=== PATIENT | male | born 1935 | race Native Hawaiian/Other Pacific Islander ===

== ENCOUNTER 2016-07-07 10:15 | Inpatient (IN) | payer OTHER ==
[~2016-07-07 10:15] MED LIST: AMLO10TA PO; BAYER ASPIRIN E81 MG PO; FLUTMIS6 INH; HYDR25TA60 PO; MELOXICAM15 MG PO; PROAIR HFA IN; SIMV20TA2 PO; UNITH DIRECT88 MCG PO
== END 2016-08-07 08:00 | disposition still patient (30) ==
LOC: PAVC 10:15
PROVIDERS: ADMIT Internal Medicine
DX: Z51.89 Encounter for other specified aftercare (principal)

== ENCOUNTER 2016-08-07 09:00 | Inpatient (IN) | payer OTHER | END 2016-09-07 12:35 | disposition still patient (30) | LOC: PAVC 09:00 | PROVIDERS: ADMIT Internal Medicine | DX: Z51.89 Encounter for other specified aftercare (principal) ==

== ENCOUNTER 2016-09-02 09:22 | Outpatient (CLI) | payer OTHER | END 2016-09-02 19:09 | disposition home or self-care (01) | LOC: LAB 09:22 | DX: R25.2 Cramp and spasm (principal); M10.072 Idiopathic gout, left ankle and foot | CPT/HCPCS: 83735 ==

== ENCOUNTER 2016-09-07 12:54 | Inpatient (IN) | payer OTHER | END 2016-10-05 13:21 | disposition still patient (30) | LOC: PAVC 12:54 | PROVIDERS: ADMIT Internal Medicine | DX: Z51.89 Encounter for other specified aftercare (principal) ==

== ENCOUNTER 2016-10-05 13:37 | Inpatient (IN) | payer OTHER | END 2016-11-05 08:04 | disposition still patient (30) | LOC: PAVC 13:37 | PROVIDERS: ADMIT Internal Medicine | DX: Z51.89 Encounter for other specified aftercare (principal) ==

== ENCOUNTER 2016-10-27 12:35 | Outpatient (CLI) | payer OTHER | END 2016-10-27 21:05 | disposition home or self-care (01) | LOC: RAD 12:35 | DX: M25.512 Pain in left shoulder (principal); M25.612 Stiffness of left shoulder, not elsewhere classified ==

== ENCOUNTER 2016-11-05 08:38 | Inpatient (IN) | payer OTHER | END 2016-12-05 10:57 | disposition still patient (30) | LOC: PAVC 08:38 | PROVIDERS: ADMIT Internal Medicine | DX: Z51.89 Encounter for other specified aftercare (principal) ==

== ENCOUNTER 2016-12-03 15:40 | Outpatient (CLI) | payer OTHER | END 2016-12-03 19:58 | disposition home or self-care (01) | LOC: LAB 15:40 | DX: Z16.24 Resistance to multiple antibiotics (principal) | CPT/HCPCS: 87081 ==

== ENCOUNTER 2016-12-05 11:24 | Inpatient (IN) | payer OTHER | END 2017-01-05 10:46 | disposition still patient (30) | LOC: PAVC 11:24 | PROVIDERS: ADMIT Internal Medicine | DX: Z51.89 Encounter for other specified aftercare (principal) ==

== ENCOUNTER 2017-01-05 11:00 | Inpatient (IN) | payer OTHER | END 2017-02-04 16:09 | disposition still patient (30) | LOC: PAVC 11:00 | PROVIDERS: ADMIT Internal Medicine | DX: Z51.89 Encounter for other specified aftercare (principal) ==

== ENCOUNTER 2017-01-09 05:56 | Day surgery (SDC) | payer OTHER | END 2017-01-09 08:17 | disposition home or self-care (01) | LOC: OR 05:56 | PROC: 08RK3JZ Replacement of Left Lens with Synthetic Substitute, Percutaneous Approach (ICD-10-PCS; principal; 2017-01-09) | DX: H25.812 Combined forms of age-related cataract, left eye (principal) | CPT/HCPCS: 66984; V2632 ==

== ENCOUNTER 2017-01-10 06:50 | Outpatient (CLI) | payer OTHER ==
[2017-01-10 08:45] LABS: PLATELET COUNT 219 K/uL (142-355)
[2017-01-10 09:05] LABS: POTASSIUM 3.9 mmol/L (3.6-5.2); SODIUM 137 mmol/L (136-145)
== END 2017-01-10 19:08 | disposition home or self-care (01) ==
LOC: LAB 06:50
PROVIDERS: Internal Medicine
DX: D64.89 Other specified anemias (principal); I10 Essential (primary) hypertension; E03.8 Other specified hypothyroidism
CPT/HCPCS: 80053; 84443; 85027

== ENCOUNTER 2017-02-04 16:32 | Inpatient (IN) | payer OTHER | END 2017-03-07 12:59 | disposition still patient (30) | LOC: PAVC 16:32 | PROVIDERS: ADMIT Internal Medicine | DX: Z51.89 Encounter for other specified aftercare (principal) ==

== ENCOUNTER 2017-02-27 09:20 | Day surgery (SDC) | payer OTHER | END 2017-02-27 11:42 | disposition home or self-care (01) | LOC: OR 09:20 | PROC: 08RJ3JZ Replacement of Right Lens with Synthetic Substitute, Percutaneous Approach (ICD-10-PCS; principal; 2017-02-27) | DX: H25.811 Combined forms of age-related cataract, right eye (principal) | CPT/HCPCS: 66984; V2632 ==

== ENCOUNTER 2017-03-07 14:08 | Inpatient (IN) | payer OTHER | END 2017-04-07 09:46 | disposition still patient (30) | LOC: PAVC 14:08 | PROVIDERS: ADMIT Internal Medicine | DX: Z51.89 Encounter for other specified aftercare (principal) ==

== ENCOUNTER 2017-04-07 10:30 | Inpatient (IN) | payer OTHER | END 2017-05-07 09:37 | disposition still patient (30) | LOC: PAVC 10:30 | PROVIDERS: ADMIT Internal Medicine | DX: Z51.89 Encounter for other specified aftercare (principal) ==

== ENCOUNTER 2017-05-07 09:57 | Inpatient (IN) | payer OTHER | END 2017-06-07 14:20 | disposition still patient (30) | LOC: PAVC 09:57 | PROVIDERS: ADMIT Internal Medicine ==

== ENCOUNTER 2017-05-10 05:19 | Outpatient (CLI) | payer OTHER | END 2017-05-10 06:20 | disposition home or self-care (01) | LOC: LAB 05:19 | PROVIDERS: Internal Medicine | DX: N18.3 Chronic kidney disease, stage 3 (moderate) (principal); E78.00 Pure hypercholesterolemia, unspecified | CPT/HCPCS: 36415; 80061 ==

== ENCOUNTER 2017-06-07 14:56 | Inpatient (IN) | payer OTHER | END 2017-07-07 10:30 | disposition still patient (30) | LOC: PAVC 14:56 | PROVIDERS: ADMIT Internal Medicine ==

== ENCOUNTER 2017-06-14 11:19 | Outpatient (CLI) | payer OTHER | END 2017-06-14 18:59 | disposition home or self-care (01) | LOC: LAB 11:19 | DX: N39.498 Other specified urinary incontinence (principal) | CPT/HCPCS: 81000 ==

== ENCOUNTER 2017-07-07 10:54 | Inpatient (IN) | payer OTHER | END 2017-08-07 10:57 | disposition still patient (30) | LOC: PAVC 10:54 | PROVIDERS: ADMIT Internal Medicine ==

== ENCOUNTER 2017-08-01 19:44 | Outpatient (CLI) | payer OTHER | END 2017-08-01 22:00 | disposition home or self-care (01) | LOC: RAD 19:44 | DX: M79.672 Pain in left foot (principal) ==

== ENCOUNTER 2017-08-02 04:12 | Outpatient (CLI) | payer OTHER | END 2017-08-02 19:06 | disposition home or self-care (01) | LOC: LAB 04:12 | DX: M10.00 Idiopathic gout, unspecified site (principal) | CPT/HCPCS: 84550 ==

== ENCOUNTER 2017-08-07 11:45 | Inpatient (IN) | payer OTHER | END 2017-09-07 11:12 | disposition still patient (30) | LOC: PAVC 11:45 | PROVIDERS: ADMIT Internal Medicine ==

== ENCOUNTER 2017-08-08 14:06 | Outpatient (CLI) | payer OTHER | END 2017-08-08 21:23 | disposition home or self-care (01) | LOC: LAB 14:06 | DX: R50.9 Fever, unspecified (principal) | CPT/HCPCS: 87804 ==

== ENCOUNTER 2017-09-07 12:28 | Inpatient (IN) | payer OTHER | END 2017-10-05 10:38 | disposition still patient (30) | LOC: PAVC 12:28 | PROVIDERS: ADMIT Internal Medicine ==

== ENCOUNTER 2017-10-05 10:56 | Inpatient (IN) | payer OTHER | END 2017-11-05 08:00 | disposition still patient (30) | LOC: PAVC 10:56 | PROVIDERS: ADMIT Internal Medicine ==

== ENCOUNTER 2017-10-25 14:28 | Outpatient (CLI) | payer OTHER | END 2017-10-25 18:57 | disposition home or self-care (01) | LOC: LAB 14:28 | DX: M10.9 Gout, unspecified (principal) | CPT/HCPCS: 84550 ==

== ENCOUNTER 2017-11-05 09:00 | Inpatient (IN) | payer OTHER | END 2017-12-05 10:28 | disposition still patient (30) | LOC: PAVC 09:00 | PROVIDERS: ADMIT Internal Medicine ==

== ENCOUNTER 2017-12-05 10:51 | Inpatient (IN) | payer OTHER | END 2018-01-05 10:24 | disposition still patient (30) | LOC: PAVC 10:51 | PROVIDERS: ADMIT Internal Medicine ==

== ENCOUNTER 2018-01-05 10:48 | Inpatient (IN) | payer OTHER | END 2018-02-04 15:05 | disposition still patient (30) | LOC: PAVC 10:48 | PROVIDERS: ADMIT Internal Medicine ==

== ENCOUNTER 2018-01-08 05:34 | Outpatient (CLI) | payer OTHER ==
[2018-01-08 06:26] LABS: PLATELET COUNT 167 K/uL (142-355)
[2018-01-08 07:21] LABS: POTASSIUM 3.7 mmol/L (3.6-5.2)
== END 2018-01-08 21:59 | disposition home or self-care (01) ==
LOC: LAB 05:34
PROVIDERS: Internal Medicine
DX: D64.89 Other specified anemias (principal); M10.9 Gout, unspecified
CPT/HCPCS: 80053; 84443; 84550; 85027

== ENCOUNTER 2018-01-11 08:16 | Day surgery (SDC) | payer OTHER | END 2018-01-11 09:57 | LOC: OR 08:16 | PROC: 0DB98ZX Excision of Duodenum, Via Natural or Artificial Opening Endoscopic, Diagnostic (ICD-10-PCS; principal; 2018-01-11) | DX: K29.60 Other gastritis without bleeding (principal); R13.11 Dysphagia, oral phase; K44.9 Diaphragmatic hernia without obstruction or gangrene | CPT/HCPCS: J2001; J2704 ==

== ENCOUNTER 2018-02-04 15:30 | Inpatient (IN) | payer OTHER | END 2018-03-07 08:00 | disposition still patient (30) | LOC: PAVC 15:30 | PROVIDERS: ADMIT Internal Medicine ==

== ENCOUNTER 2018-02-10 12:17 | Outpatient (CLI) | payer OTHER | END 2018-02-10 19:37 | disposition home or self-care (01) | LOC: RAD 12:17 | DX: M79.672 Pain in left foot (principal); R60.0 Localized edema ==

== ENCOUNTER 2018-03-07 09:00 | Inpatient (IN) | payer OTHER | END 2018-04-07 11:11 | disposition still patient (30) | LOC: PAVC 09:00 | PROVIDERS: ADMIT Internal Medicine ==

== ENCOUNTER 2018-04-07 11:34 | Inpatient (IN) | payer OTHER | END 2018-05-07 14:35 | disposition still patient (30) | LOC: PAVC 11:34 | PROVIDERS: ADMIT Internal Medicine ==

== ENCOUNTER 2018-05-07 15:34 | Inpatient (IN) | payer OTHER | END 2018-06-07 10:33 | disposition still patient (30) | LOC: PAVC 15:34 | PROVIDERS: ADMIT Internal Medicine ==

== ENCOUNTER 2018-05-17 03:35 | Outpatient (CLI) | payer OTHER | END 2018-05-17 19:30 | disposition home or self-care (01) | LOC: LAB 03:35 | PROVIDERS: Internal Medicine | DX: E78.5 Hyperlipidemia, unspecified (principal) | CPT/HCPCS: 80061 ==

== ENCOUNTER 2018-06-07 11:28 | Inpatient (IN) | payer OTHER | END 2018-07-07 07:21 | disposition still patient (30) | LOC: PAVC 11:28 | PROVIDERS: ADMIT Internal Medicine ==

== ENCOUNTER 2018-06-19 06:00 | Outpatient (CLI) | payer OTHER ==
[2018-06-19 06:53] LABS: POTASSIUM 3.7 mmol/L (3.6-5.2)
== END 2018-06-19 21:28 | disposition home or self-care (01) ==
LOC: LAB 06:00
PROVIDERS: Internal Medicine
DX: R79.89 Other specified abnormal findings of blood chemistry (principal)
CPT/HCPCS: 80048

== ENCOUNTER 2018-07-07 07:46 | Inpatient (IN) | payer OTHER | END 2018-08-07 09:36 | disposition still patient (30) | LOC: PAVC 07:46 | PROVIDERS: ADMIT Internal Medicine ==

== ENCOUNTER 2018-07-10 04:00 | Outpatient (CLI) | payer OTHER ==
[2018-07-10 07:02] LABS: POTASSIUM 3.7 mmol/L (3.6-5.2)
[2018-07-10 07:04] LABS: PLATELET COUNT 191 K/uL (142-355)
== END 2018-07-10 21:17 | disposition home or self-care (01) ==
LOC: LAB 04:00
PROVIDERS: Internal Medicine
DX: D64.9 Anemia, unspecified (principal); M10.9 Gout, unspecified
CPT/HCPCS: 80053; 82607; 84443; 84550; 85027

== ENCOUNTER 2018-08-07 09:52 | Inpatient (IN) | payer OTHER | END 2018-09-07 09:37 | disposition still patient (30) | LOC: PAVC 09:52 | PROVIDERS: ADMIT Internal Medicine ==

== ENCOUNTER 2018-09-07 10:13 | Inpatient (IN) | payer OTHER | END 2018-10-05 13:47 | disposition still patient (30) | LOC: PAVC 10:13 | PROVIDERS: ADMIT Internal Medicine ==

== ENCOUNTER 2018-10-05 14:12 | Inpatient (IN) | payer OTHER | END 2018-11-05 12:30 | disposition still patient (30) | LOC: PAVC 14:12 | PROVIDERS: ADMIT Internal Medicine ==

== ENCOUNTER 2018-11-05 12:49 | Inpatient (IN) | payer OTHER | END 2018-12-05 13:43 | disposition still patient (30) | LOC: PAVC 12:49 | PROVIDERS: ADMIT Internal Medicine ==

== ENCOUNTER 2018-12-05 14:11 | Inpatient (IN) | payer OTHER | END 2019-01-05 09:40 | disposition still patient (30) | LOC: PAVC 14:11 | PROVIDERS: ADMIT Internal Medicine | DX: Z51.89 Encounter for other specified aftercare (principal) ==

== ENCOUNTER 2019-01-05 10:04 | Inpatient (IN) | payer OTHER | END 2019-02-04 12:19 | disposition still patient (30) | LOC: PAVC 10:04 | PROVIDERS: ADMIT Internal Medicine ==

== ENCOUNTER 2019-01-09 03:36 | Outpatient (CLI) | payer OTHER ==
[2019-01-09 04:49] LABS: PLATELET COUNT 233 K/uL (142-355)
[2019-01-09 05:24] LABS: POTASSIUM 3.4 mmol/L (3.6-5.2)
== END 2019-01-09 23:20 | disposition home or self-care (01) ==
LOC: LAB 03:36
PROVIDERS: Internal Medicine
DX: R68.89 Other general symptoms and signs (principal); R79.89 Other specified abnormal findings of blood chemistry; R94.6 Abnormal results of thyroid function studies; Z12.5 Encounter for screening for malignant neoplasm of prostate
CPT/HCPCS: 36415; 80053; 84153; 84443; 84550; 85027

== ENCOUNTER 2019-02-04 12:30 | Inpatient (IN) | payer OTHER | END 2019-03-07 11:54 | disposition still patient (30) | LOC: PAVC 12:30 | PROVIDERS: ADMIT Internal Medicine ==

== ENCOUNTER 2019-03-07 14:14 | Inpatient (IN) | payer OTHER | END 2019-04-07 17:16 | disposition still patient (30) | LOC: PAVC 14:14 | PROVIDERS: ADMIT Internal Medicine ==

== ENCOUNTER 2019-04-07 17:40 | Inpatient (IN) | payer OTHER | END 2019-05-07 12:57 | disposition still patient (30) | LOC: PAVC 17:40 | PROVIDERS: ADMIT Internal Medicine ==

== ENCOUNTER 2019-05-07 13:30 | Inpatient (IN) | payer OTHER | END 2019-06-07 14:09 | disposition still patient (30) | LOC: PAVC 13:30 | PROVIDERS: ADMIT Internal Medicine ==

== ENCOUNTER 2019-05-10 04:52 | Outpatient (CLI) | payer OTHER | END 2019-05-10 21:59 | disposition home or self-care (01) | LOC: LAB 04:52 | PROVIDERS: Internal Medicine | DX: N18.9 Chronic kidney disease, unspecified (principal) | CPT/HCPCS: 80061 ==

== ENCOUNTER 2019-06-07 14:35 | Inpatient (IN) | payer OTHER | END 2019-07-07 08:00 | disposition still patient (30) | LOC: PAVC 14:35 | PROVIDERS: ADMIT Internal Medicine | CPT/HCPCS: 83735 ==

== ENCOUNTER 2019-07-05 05:36 | Outpatient (CLI) | payer OTHER | END 2019-07-05 21:18 | disposition home or self-care (01) | LOC: LAB 05:36 | DX: E61.2 Magnesium deficiency (principal) | CPT/HCPCS: 36415; 83735 ==

== ENCOUNTER 2019-07-07 11:00 | Inpatient (IN) | payer OTHER | END 2019-08-07 09:32 | disposition still patient (30) | LOC: PAVC 11:00 | PROVIDERS: ADMIT Internal Medicine ==

== ENCOUNTER 2019-07-08 07:53 | Outpatient (CLI) | payer OTHER ==
[2019-07-08 08:18] LABS: PLATELET COUNT 147 K/uL (142-355)
[2019-07-08 09:07] LABS: POTASSIUM 3.1 mmol/L (3.6-5.2)
== END 2019-07-08 20:54 | disposition home or self-care (01) ==
LOC: LAB 07:53
PROVIDERS: Internal Medicine
DX: E03.8 Other specified hypothyroidism (principal); R73.9 Hyperglycemia, unspecified; I63.50 Cerebral infarction due to unspecified occlusion or stenosis of unspecified cerebral artery; N18.3 Chronic kidney disease, stage 3 (moderate)
CPT/HCPCS: 80053; 84443; 84550; 85027

== ENCOUNTER 2019-08-07 09:34 | Inpatient (IN) | payer OTHER ==
[2019-09-06] MEDS ORDERED: FURO40TA93 PO (13:09)
[2019-09-06] MEDS ORDERED: LEVO0.08 PO (13:11)
[2019-09-06] MEDS ORDERED: TAMS0.4C PO (13:13)
[2019-09-06] MEDS ORDERED: MOBIC7.5 M1 PO (13:14)
[2019-09-06] MEDS ORDERED: PRED10TA27 PO (13:14)
[2019-09-06] MEDS ORDERED: OMEP40CA PO (13:16)
[2019-09-06] MEDS ORDERED: ALLO100T22 PO (13:17)
[2019-09-06] MEDS ORDERED: FLUTMIS6 INH (13:18)
[2019-09-06] MEDS ORDERED: ALLEGRA ALRG180 M1 PO (13:19)
[2019-09-06] MEDS ORDERED: KLOR-CON M2020 MEQ PO (13:20)
[2019-09-06] MEDS ORDERED: OXYB5TAB56 PO (13:21)
[2019-09-06] MEDS ORDERED: HYDR2.5C36 EX (13:24)
[2019-09-06] MEDS ORDERED: MELATONIN3 MG PO (13:26)
[2019-09-06] MEDS ORDERED: TYLENOL325 MG PO (13:27)
[2019-09-06] MEDS ORDERED: TRAM50TA PO (13:29)
[2019-09-06] MEDS ORDERED: [UNRECOGNIZED DRUG - OTHER] TOP (13:32)
== END 2019-09-07 10:47 | disposition still patient (30) ==
LOC: PAVC 09:34
PROVIDERS: ADMIT Internal Medicine

== ENCOUNTER 2019-09-06 08:46 | Inpatient (IN) | payer OTHER ==
[2019-09-06] VITALS (23 sets, daily range): BP systolic 89–158; BP diastolic 61–85; TEMP 97.5–100.8; Ht 172.7 cm; Wt 95.9 kg
[~2019-09-06] VITALS: Ht 172.7 cm; Wt 95.9 kg
[2019-09-06 09:15] LABS: PLATELET COUNT 257 K/uL (142-355)
[2019-09-06 09:38] LABS: POTASSIUM 3.2 mmol/L (3.6-5.2)
[2019-09-06 10:51] LABS: PARTIAL THROMBOPLASTIN TIME 23.4 SECONDS (24.5-33.6)
[2019-09-06] MEDS ORDERED: FURO40TA93 PO (13:09)
[2019-09-06] MEDS ORDERED: LEVO0.08 PO (13:11)
[2019-09-06] MEDS ORDERED: TAMS0.4C PO (13:13)
[2019-09-06] MEDS ORDERED: MOBIC7.5 M1 PO (13:14)
[2019-09-06] MEDS ORDERED: PRED10TA27 PO (13:14)
[2019-09-06] MEDS ORDERED: OMEP40CA PO (13:16)
[2019-09-06] MEDS ORDERED: ALLO100T22 PO (13:17)
[2019-09-06] MEDS ORDERED: FLUTMIS6 INH (13:18)
[2019-09-06] MEDS ORDERED: ALLEGRA ALRG180 M1 PO (13:19)
[2019-09-06] MEDS ORDERED: KLOR-CON M2020 MEQ PO (13:20)
[2019-09-06] MEDS ORDERED: OXYB5TAB56 PO (13:21)
[2019-09-06] MEDS ORDERED: HYDR2.5C36 EX (13:24)
[2019-09-06] MEDS ORDERED: MELATONIN3 MG PO (13:26)
[2019-09-06] MEDS ORDERED: TYLENOL325 MG PO (13:27)
[2019-09-06] MEDS ORDERED: TRAM50TA PO (13:29)
[2019-09-06] MEDS ORDERED: [UNRECOGNIZED DRUG - OTHER] TOP (13:32)
[2019-09-07] VITALS (24 sets, daily range): BP systolic 113–163; BP diastolic 53–87; TEMP 37.4
[2019-09-07 05:41] LABS: PLATELET COUNT 123 K/uL (142-355)
[2019-09-07 06:05] LABS: POTASSIUM 3.6 mmol/L (3.6-5.2)
[2019-09-08] VITALS (19 sets, daily range): BP systolic 12–144; BP diastolic 56–85; TEMP 97.5–99.9
[2019-09-08 05:18] LABS: PLATELET COUNT 121 K/uL (142-355)
[2019-09-08 05:36] LABS: POTASSIUM 3.8 mmol/L (3.6-5.2)
[2019-09-09] VITALS: BP 126/67; TEMP 99.2
[2019-09-09 04:00] VITALS: BP 144/74; TEMP 99
[2019-09-09 05:37] LABS: PLATELET COUNT 119 K/uL (142-355)
[2019-09-09 05:45] LABS: POTASSIUM 3.5 mmol/L (3.6-5.2)
[2019-09-09 08:00] VITALS: BP 137/77; TEMP 98.4
[2019-09-09 12:00] VITALS: BP 137/71; TEMP 97.8
[2019-09-09 16:00] VITALS: BP 138/76; TEMP 98.2
[2019-09-09 20:00] VITALS: BP 104/63; TEMP 98.8
[2019-09-10] VITALS: BP 123/68; TEMP 99.1
[2019-09-10 04:00] VITALS: BP 123/66; TEMP 99.3
[2019-09-10 08:00] VITALS: BP 125/67; TEMP 98.4
[2019-09-10 12:00] VITALS: BP 101/65; TEMP 98.9
[2019-09-10 16:00] VITALS: BP 112/63; TEMP 98.6
[2019-09-10 20:00] VITALS: BP 103/66; TEMP 98.9
[2019-09-11] VITALS: BP 122/65; TEMP 98.3
[2019-09-11 04:00] VITALS: BP 124/53; TEMP 98.2
[2019-09-11 08:00] VITALS: BP 118/63; TEMP 98.7
[2019-09-11 12:00] VITALS: BP 119/56; TEMP 98.6
== END 2019-09-11 10:11 | disposition home or self-care (01) | DRG 871 ==
LOC: ED 08:46 → MED/SURG 11:05 → ICU 11:05 → MED/SURG 09-08 17:30
PROVIDERS: Internal Medicine; ADMIT Family Medicine
DX: A41.89 Other specified sepsis (principal); J18.8 Other pneumonia, unspecified organism; N17.8 Other acute kidney failure; M62.82 Rhabdomyolysis; E87.0 Hyperosmolality and hypernatremia; N39.0 Urinary tract infection, site not specified; R00.0 Tachycardia, unspecified; E03.8 Other specified hypothyroidism; N40.0 Benign prostatic hyperplasia without lower urinary tract symptoms; K21.9 Gastro-esophageal reflux disease without esophagitis; J44.9 Chronic obstructive pulmonary disease, unspecified; E87.6 Hypokalemia; Z86.73 Personal history of transient ischemic attack (TIA), and cerebral infarction without residual deficits; E11.22 Type 2 diabetes mellitus with diabetic chronic kidney disease; I12.9 Hypertensive chronic kidney disease with stage 1 through stage 4 chronic kidney disease, or unspecified chronic kidney disease; N18.3 Chronic kidney disease, stage 3 (moderate); D47.3 Essential (hemorrhagic) thrombocythemia; E87.8 Other disorders of electrolyte and fluid balance, not elsewhere classified; R59.1 Generalized enlarged lymph nodes
CPT/HCPCS: 36415; 51702; 80048; 80053; 80202; 81000; 82550; 82553; 83605; 84443; 84484; 85027; 85379; 85610; 85730; 87040; 87077; 87086; 87088; 87186; 87205; 87502; 93005; 94664; 94760; 96360; 96365; 96375; 99284; J0696; J2060; J2185; J2543; J3370; J3490; Q9963

== ENCOUNTER 2019-09-07 11:51 | Inpatient (IN) | payer OTHER ==
[~2019-09-07 11:51] MED LIST changes: +ALLEGRA ALRG180 M1 PO; +ALLO100T22 PO; +FURO40TA93 PO; +HYDR2.5C36 EX; +KLOR-CON M2020 MEQ PO; +LEVO0.08 PO; +MELATONIN3 MG PO; +MOBIC7.5 M1 PO; +OMEP40CA PO; +OXYB5TAB56 PO; +PRED10TA27 PO; +TAMS0.4C PO; +TRAM50TA PO; +TYLENOL325 MG PO; +[UNRECOGNIZED DRUG - OTHER] TOP
[2019-09-23] MEDS ORDERED: POLY GLYCOL3350 M1 PO (11:18)
[2019-09-23] MEDS ORDERED: NYSTATIN100000 UNI PO (11:19)
== END 2019-10-06 14:13 | disposition still patient (30) ==
LOC: PAVC 11:51
PROVIDERS: ADMIT Internal Medicine

== ENCOUNTER 2019-09-13 19:55 | Outpatient (CLI) | payer OTHER | END 2019-09-13 21:22 | disposition home or self-care (01) | LOC: RAD 19:55 | DX: Z91.81 History of falling (principal); M25.512 Pain in left shoulder ==

== ENCOUNTER 2019-09-23 06:19 | Inpatient (IN) | payer OTHER ==
[2019-09-23] VITALS (9 sets, daily range): BP systolic 97–122; BP diastolic 61–77; TEMP 98.1–98.6; Ht 172.7 cm; Wt 90.1 kg
[~2019-09-23] VITALS: Ht 172.7 cm; Wt 90.1 kg
[2019-09-23 06:34] LABS: PLATELET COUNT 159 K/uL (142-355)
[2019-09-23 06:44] LABS: POTASSIUM 3.3 mmol/L (3.6-5.2)
[2019-09-23 06:49] LABS: PARTIAL THROMBOPLASTIN TIME 23.4 SECONDS (24.5-33.6)
[2019-09-23] MEDS ORDERED: POLY GLYCOL3350 M1 PO (11:18)
[2019-09-23] MEDS ORDERED: NYSTATIN100000 UNI PO (11:19)
[2019-09-24] VITALS: BP 107/61; TEMP 98.2
[2019-09-24 04:00] VITALS: BP 115/72; TEMP 97.9
[2019-09-24 08:22] VITALS: BP 110/71; TEMP 98.9
[2019-09-24 11:25] LABS: PLATELET COUNT 148 K/uL (142-355)
[2019-09-24 11:38] LABS: POTASSIUM 3.9 mmol/L (3.6-5.2)
[2019-09-24 16:24] VITALS: BP 105/66; TEMP 98.4
[2019-09-24 20:00] VITALS: BP 109/65; TEMP 98.4
[2019-09-25] VITALS: BP 134/68; TEMP 98.7
[2019-09-25 04:00] VITALS: BP 126/72; TEMP 98.6
[2019-09-25 05:07] LABS: POTASSIUM 4.1 mmol/L (3.6-5.2)
[2019-09-25 05:11] LABS: PLATELET COUNT 146 K/uL (142-355)
[2019-09-25 08:05] VITALS: BP 115/71; TEMP 97.3
== END 2019-09-25 13:26 | DRG 189 ==
LOC: ED 06:19 → MED/SURG 07:35
PROVIDERS: Internal Medicine Endocrinology, Diabetes & Metabolism; ADMIT Hospitalist
DX: J96.01 Acute respiratory failure with hypoxia (principal); J44.1 Chronic obstructive pulmonary disease with (acute) exacerbation; N17.9 Acute kidney failure, unspecified; I13.0 Hypertensive heart and chronic kidney disease with heart failure and stage 1 through stage 4 chronic kidney disease, or unspecified chronic kidney disease; I25.10 Atherosclerotic heart disease of native coronary artery without angina pectoris; E03.8 Other specified hypothyroidism; M15.8 Other polyosteoarthritis; Z86.73 Personal history of transient ischemic attack (TIA), and cerebral infarction without residual deficits; Z86.12 Personal history of poliomyelitis; E87.6 Hypokalemia; N40.0 Benign prostatic hyperplasia without lower urinary tract symptoms; E11.22 Type 2 diabetes mellitus with diabetic chronic kidney disease; N18.3 Chronic kidney disease, stage 3 (moderate); I50.89 Other heart failure
CPT/HCPCS: 36415; 36600; 51702; 80048; 80053; 80154; 81000; 82550; 82805; 83880; 84484; 85027; 85379; 85610; 85730; 87040; 93005; 94640; 94664; 94760; 96365; 96366; 96372; 96375; 99284; A9540; A9567; J1650; J1815; J1940; J1956; J2930; J3370

== ENCOUNTER 2019-10-06 14:23 | Inpatient (IN) | payer OTHER ==
[~2019-10-06 14:23] MED LIST changes: +NYSTATIN100000 UNI PO; +POLY GLYCOL3350 M1 PO
== END 2019-11-06 11:51 | disposition still patient (30) ==
LOC: PAVC 14:23
PROVIDERS: ADMIT Internal Medicine

== ENCOUNTER 2019-10-18 12:06 | Outpatient (CLI) | payer OTHER | END 2019-10-18 20:14 | disposition home or self-care (01) | LOC: LAB 12:06 | DX: J44.9 Chronic obstructive pulmonary disease, unspecified (principal); R06.02 Shortness of breath | CPT/HCPCS: 83880 ==

== ENCOUNTER 2019-11-06 12:23 | Inpatient (IN) | payer OTHER | END 2019-11-29 07:30 | disposition E | LOC: PAVC 12:23 | PROVIDERS: ADMIT Internal Medicine ==

== ENCOUNTER 2019-11-23 12:38 | Inpatient (IN) | payer OTHER ==
[2019-11-23] VITALS (23 sets, daily range): BP systolic 70–157; BP diastolic 39–80; TEMP 98–103.5; Ht 177.8 cm; Wt 90.7 kg
[~2019-11-23] VITALS: Ht 177.8 cm; Wt 90.7 kg
[2019-11-23 13:47] LABS: PLATELET COUNT 211 K/uL (142-355)
[2019-11-23 13:56] LABS: POTASSIUM 3.3 mmol/L (3.6-5.2)
[2019-11-24] VITALS (30 sets, daily range): BP systolic 94–153; BP diastolic 48–87; TEMP 97.5–98.9
[2019-11-24 06:30] LABS: PLATELET COUNT 145 K/uL (142-355)
[2019-11-24 06:39] LABS: POTASSIUM 4.4 mmol/L (3.6-5.2)
[2019-11-25] VITALS (22 sets, daily range): BP systolic 73–126; BP diastolic 43–72; TEMP 98.1–100.3
[2019-11-25 06:53] LABS: PLATELET COUNT 139 K/uL (142-355)
[2019-11-25 07:11] LABS: POTASSIUM 3.5 mmol/L (3.6-5.2)
[2019-11-26] VITALS (16 sets, daily range): BP systolic 85–123; BP diastolic 31–69; TEMP 97.7–100.3
[2019-11-26 08:28] LABS: PLATELET COUNT 133 K/uL (142-355)
[2019-11-26 08:37] LABS: POTASSIUM 3.5 mmol/L (3.6-5.2)
[2019-11-27] VITALS (51 sets, daily range): BP systolic 11–157; BP diastolic 36–82; TEMP 97.8–102.2
[2019-11-27 06:55] LABS: PLATELET COUNT 141 K/uL (142-355)
[2019-11-27 07:17] LABS: POTASSIUM 3.6 mmol/L (3.6-5.2)
[2019-11-28] VITALS (68 sets, daily range): BP systolic 55–158; BP diastolic 36–74; TEMP 97.3–101.2
[2019-11-28 05:44] LABS: PLATELET COUNT 161 K/uL (142-355)
[2019-11-28 05:58] LABS: POTASSIUM 4.2 mmol/L (3.6-5.2)
[2019-11-29] VITALS (17 sets, daily range): BP systolic 41–150; BP diastolic 25–77; TEMP 99.1–99.6
== END 2019-11-29 11:00 | disposition expired | DRG 208 ==
LOC: ED 12:38 → ICU 15:00 → PCU 11-26 21:24 → ICU 11-26 21:25
PROVIDERS: Internal Medicine; Internal Medicine Endocrinology, Diabetes & Metabolism; ADMIT Emergency Medicine
PROC: 5A1945Z Respiratory Ventilation, 24-96 Consecutive Hours (ICD-10-PCS; principal; 2019-11-27)
PROC: 0BH17EZ Insertion of Endotracheal Airway into Trachea, Via Natural or Artificial Opening (ICD-10-PCS; 2019-11-27)
DX: U07.1 COVID-19 (principal); J96.01 Acute respiratory failure with hypoxia; A41.89 Other specified sepsis; E44.0 Moderate protein-calorie malnutrition; N18.4 Chronic kidney disease, stage 4 (severe); E83.42 Hypomagnesemia; D69.6 Thrombocytopenia, unspecified; N40.0 Benign prostatic hyperplasia without lower urinary tract symptoms; K21.9 Gastro-esophageal reflux disease without esophagitis; E03.8 Other specified hypothyroidism; D63.8 Anemia in other chronic diseases classified elsewhere; I25.10 Atherosclerotic heart disease of native coronary artery without angina pectoris; Z86.73 Personal history of transient ischemic attack (TIA), and cerebral infarction without residual deficits; Z86.12 Personal history of poliomyelitis; J44.9 Chronic obstructive pulmonary disease, unspecified; I12.9 Hypertensive chronic kidney disease with stage 1 through stage 4 chronic kidney disease, or unspecified chronic kidney disease; I48.91 Unspecified atrial fibrillation
CPT/HCPCS: 31500; 36415; 36600; 51702; 80053; 80162; 80170; 80202; 81000; 82805; 82962; 83605; 83735; 85027; 87040; 87077; 87185; 87186; 87205; 87502; 87651; 93005; 94002; 94003; 94760; 96360; 96361; 96365; 96375; 99285; J0132; J0171; J0330; J0696; J1160; J1580; J1644; J1650; J1885; J2060; J2185; J2405; J3370; J3475; J3490; P9047